=== PATIENT | female | born 1955 | race African-American/Black ===

== ENCOUNTER 2017-02-06 00:15 | Emergency (ER) | payer OTHER ==
[~2017-02-06] VITALS: Ht 160 cm; Wt 52.6 kg
[2017-02-06 00:24] VITALS: BP 120/64
[2017-02-06] MEDS ORDERED: LIDOCAINE 1%/EPI 1:100,000 20 ML VIAL. INJ ONE (00:30)
[2017-02-06] MEDS ORDERED: TETANUS AND DIPHTHERIA TOX/PF 0.5 ML DISP.SYRIN. VAX IM ONE (00:30)
[2017-02-06] MEDS ORDERED: ONDANSETRON ODT 4 MG TAB.RAPDIS. PO ONE (00:30)
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
--- NOTE | 2017-02-06 01:57 | RAD ---
INDICATION: laceration to left forehead after falling down stairs COMPARISON: None. TECHNIQUE: Axial CT images obtained through the head and cervical spine without intravenous contrast. Coronal and sagittal reformats processed of cervical spine. One or more of the following individualized dose reduction techniques were utilized for this examination: 1. Automated exposure control; 2. Adjustment of the mA and/or kV according to patient size; 3. Use of iterative reconstruction technique. FINDINGS: Head: No intracranial hemorrhage. No midline shift. Basal cisterns patents. Ventricles and sulci are within normal limits. No acute osseous abnormality. At the left superior orbital wall there is some angulation of the bone within the region. There are some calcifications along the falx and tentorium. Cervical: No definite acute fracture. No significant malalignment. No evidence of perivertebral hematoma. IMPRESSION: No acute intracranial hemorrhage. At the left superior orbital wall there is some angulation of the bone with displacement. If the patient has pain within the region this could be from a mildly displaced fracture. No definite acute fracture or dislocation of the cervical spine. There is some degenerative changes the spine. Electronically signed by: Tariq Zepeda MD (02/06/2017 1:54 AM) [id number]
== END 2017-02-06 02:11 | disposition home or self-care (01) ==
LOC: ER 00:15
DX: S02.82XA Fracture of other specified skull and facial bones, left side, initial encounter for closed fracture (principal); S01.81XA Laceration without foreign body of other part of head, initial encounter; S09.90XA Unspecified injury of head, initial encounter; F10.129 Alcohol abuse with intoxication, unspecified; I95.9 Hypotension, unspecified; W10.9XXA Fall (on) (from) unspecified stairs and steps, initial encounter; Y93.89 Activity, other specified; Y92.89 Other specified places as the place of occurrence of the external cause; Y99.8 Other external cause status
CPT/HCPCS: 12013; 70450; 72125; 90471; 90714; 99285; J3490